=== PATIENT | male | born 1990 | race Caucasian/White ===

== ENCOUNTER 2017-02-18 16:11 | Emergency (ER) | payer MEDICAID ==
[~2017-02-18] VITALS: Ht 182.9 cm; Wt 93.3 kg
[2017-02-18 16:20] VITALS: BP 126/80
== END 2017-02-18 17:55 | disposition home or self-care (01) ==
LOC: ED 17:00
DX: S43.422A Sprain of left rotator cuff capsule, initial encounter (principal); X50.1XXA Overexertion from prolonged static or awkward postures, initial encounter; Y93.89 Activity, other specified; Y92.009 Unspecified place in unspecified non-institutional (private) residence as the place of occurrence of the external cause; Y99.8 Other external cause status
CPT/HCPCS: 93005; 99283

== ENCOUNTER 2019-09-01 13:13 | Emergency (ER) | payer MEDICAID, OTHER ==
[~2019-09-01] VITALS: Ht 180.3 cm; Wt 95.0 kg
--- NOTE | 2019-09-01 14:15 | NUR ---
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
[2019-09-01] MEDS ORDERED: ONDANSETRON 2MG/ML, 2ML IVPush ONE (14:30)
[2019-09-01] MEDS ORDERED: KETOROLAC 30 MG/1 ML IVPush ONE (14:30)
[2019-09-01] MEDS ORDERED: SODIUM CHLORIDE FLUSH 10ML SYR IVF ONE (14:30)
--- NOTE | 2019-09-01 14:32 | NUR ---
PIV STARTED. LABS DRAWN. UA COLLECTED AND TAKEN TO LAB.
[2019-09-01] MEDS ORDERED: KETOROLAC 30 MG/1 ML ONE (14:36)
[2019-09-01] MEDS ORDERED: ONDANSETRON 2MG/ML, 2ML ONE (14:36)
[2019-09-01 14:40] LABS: BASOPHILS # (AUTO) 0.01 x10^3/uL (0-0.1); BASOPHILS % (AUTO) 0 % (0-1); EOSINOPHILS % (AUTO) 0 % (1-7); LYMPHOCYTES # (AUTO) 1.39 x10^3/uL (1-3.4); LYMPHOCYTES % (AUTO) 16 % (22-44); MD NO; MEAN CORPUSCULAR VOLUME 81.8 fL (81-97); MEAN PLATELET VOLUME 7.7 fL (7.4-10.4); MONOCYTES # (AUTO) 0.44 x10^3/uL (0.2-0.8); MONOCYTES % (AUTO) 5 % (2-9); NEUTROPHILS % (AUTO) 78 % (42-75); PLATELET COUNT 262 x10^3/uL (130-400); RED BLOOD COUNT 5.88 x10^6/uL (4.38-5.82); RED CELL DISTRIBUTION WIDTH 14.3 % (9.4-14.8)
--- NOTE | 2019-09-01 14:41 | NUR ---
MEDS ADMIN PER AUG. PT CONNECTED TO MONITORING.
[2019-09-01 14:51] LABS: MICROSCOPIC AUTO
[2019-09-01 14:53] LABS: ALBUMIN 4.8 g/dL (3.4-5.0); ANION GAP 7 mmol/L (5-15); CALCIUM 9.5 mg/dL (8.5-10.1); CHLORIDE 107 mmol/L (98-107)
[2019-09-01 14:56] LABS: ALANINE AMINOTRANSFERASE 24 U/L (12-78); ALKALINE PHOSPHATASE 68 U/L (45-117); BILIRUBIN,TOTAL 0.4 mg/dL (0.2-1.0); CREATININE 0.91 mg/dL (0.7-1.3); TOTAL PROTEIN 8.6 g/dL (6.4-8.2)
[2019-09-01 15:00] LABS: CULTURE INDICATED? YES
--- NOTE | 2019-09-01 15:17 | NUR ---
ALL RESULTS ARE BACK AT THIS TIME. CHART UP FOR RECHECK.
--- NOTE | 2019-09-01 15:21 | NUR ---
PT RESTING ON BLAKE. WARM BLANKET PROVIDED.
[2019-09-01 15:26] VITALS: BP 121/68
--- NOTE | 2019-09-01 15:59 | NUR ---
PT REFUSED CT. AWARE.
== END 2019-09-01 16:00 | disposition home or self-care (01) ==
LOC: ED 13:56
DX: M54.6 Pain in thoracic spine (principal)
CPT/HCPCS: 36415; 80053; 81001; 83690; 85025; 87086; 96374; 96375; 99284; J1885; J2405